=== PATIENT | male | born 1995 ===

== ENCOUNTER 2018-02-22 20:06 | Outpatient (CLI) | payer BC ==
[2018-02-24 23:30] LABS: AMPHETAMINES URINE QUAL DS Negative; BARBITURATES URINE QUAL DS Negative; BENZODIAZEPINE URINE QUAL DS Negative
== END 2018-02-23 15:00 | disposition home or self-care (01) ==
LOC: SLEEP 20:06
PROVIDERS: ATTEND Family Medicine
DX: G47.10 Hypersomnia, unspecified (principal)
CPT/HCPCS: 36415; 80307; 95805; 95810